=== PATIENT | male | born 1950 | race Hispanic/Latino ===

== ENCOUNTER → 2022-06-10 | Outpatient (CLI) | payer MEDICARE | END | disposition home or self-care (01) | LOC: SHCH 14:20 | PROVIDERS: ATTEND Internal Medicine Cardiovascular Disease | DX: I70.203 Unspecified atherosclerosis of native arteries of extremities, bilateral legs (principal) | CPT/HCPCS: 93925 ==

== ENCOUNTER → 2022-07-13 | Outpatient (CLI) | payer MEDICARE ==
[~2022-07-13] MED LIST: IOHEXOL 350 MG/ML 100ML INFUS..BTL IV ONE; IOHEXOL-350 50ML VIAL IV ONE
== END | disposition home or self-care (01) ==
LOC: RAH 08:36
PROVIDERS: ATTEND Internal Medicine Cardiovascular Disease
DX: I73.9 Peripheral vascular disease, unspecified (principal)
CPT/HCPCS: 75635; Q9967 ×2

== ENCOUNTER 2022-10-08 05:39 | Day surgery (SDC) | payer MEDICARE ==
[2022-10-06 11:12] LABS: BASOPHILS % (AUTO) 1.2 % (0.0-5.0); EOSINOPHILS % (AUTO) 1.4 % (0.0-8.0); HEMATOCRIT 39.8 % (42-54); LYMPHOCYTES % (AUTO) 23.9 % (21.0-51.0); MEAN CORPUSCULAR HEMOGLOBIN 27.9 pg (27.0-33.0); MEAN CORPUSCULAR HGB CONC 32.7 g/dL (32.0-36.0); MEAN CORPUSCULAR VOLUME 85.4 fL (79-99); MONOCYTES % (AUTO) 9.5 % (3.0-13.0); NEUTROPHILS % (AUTO) 63.7 % (40.0-77.0); PLATELET COUNT (AUTO) 234 K/uL (130-400); RED BLOOD CELL COUNT(AUTO) 4.66 MIL/uL (4.50-6.20); RED CELL DISTRIBUTION WIDTH 14.9 % (11.0-15.5); WHITE BLOOD COUNT (AUTO) 9.2 K/uL (4.8-10.8)
[2022-10-06 11:19] LABS: CREATININE 1.1 mg/dL (0.5-1.5); POTASSIUM 4.3 mmol/L (3.5-5.1)
[2022-10-06 11:23] LABS: INR 0.99 (0.85-1.15); PROTHROMBIN TIME 10.8 SEC (9.6-11.6)
[2022-10-06 11:24] LABS: PARTIAL THROMBOPLASTIN TIME 27.3 SEC (26.3-35.5)
[2022-10-06 11:26] VITALS: BP 149/79
[2022-10-06 11:31] LABS: B-TYPE NATRIURETIC PEPTIDE 38 pg/mL (0-100)
[~2022-10-08] VITALS: Ht 168.9 cm; Wt 79.4 kg
[2022-10-08] VITALS (9 sets, daily range): BP systolic 118–147; BP diastolic 68–88
[~2022-10-08 05:39] MED LIST changes: +ATOR40TA71 PO; +CARV12.511 PO; +CILOSTAZOL PO; +CLOP75TA32 PO; +DAPA10TA PO; -IOHEXOL 350 MG/ML 100ML INFUS..BTL IV ONE; -IOHEXOL-350 50ML VIAL IV ONE; +METF-444 PO
[2022-10-08] MEDS ORDERED: HEPARIN 10,000 UNIT/10ML (1,000 UNIT/ML) VIAL ONE (07:09)
[2022-10-08] MEDS ORDERED: MIDAZOLAM HCL 1 MG/ML 2ML VIAL ONE (07:09)
[2022-10-08] MEDS ORDERED: IODIXANOL 320 MG/ML 100 ML VIAL ONE (07:09)
[2022-10-08] MEDS ORDERED: LIDOCAINE HCL 400MG/20ML VIAL ONE (07:09)
[2022-10-08] MEDS ORDERED: NITROGLYCERIN 50MG VIAL ONE (07:09)
[2022-10-08] MEDS ORDERED: FENTANYL CITRATE PF 50 MCG/1 ML 2ML VIAL ONE (07:09)
[2022-10-08] MEDS ORDERED: 0.9%NACL 1000ML 1,000 ML IV ONE (07:11)
[2022-10-08] MEDS ORDERED: DEXTROSE 50%-WATER 50 ML DISP.SYRIN IV PRN (09:30)
[2022-10-08] MEDS ORDERED: GLUCAGON 1MG KIT 1 MG ML IM PRN (09:30)
[2022-10-08] MEDS ORDERED: 0.9%NACL 1000ML 1,000 ML IV SCH (09:30)
== END 2022-10-08 14:20 | disposition home or self-care (01) ==
LOC: DAH 05:39
PROVIDERS: ATTEND Internal Medicine Cardiovascular Disease
DX: I70.213 Atherosclerosis of native arteries of extremities with intermittent claudication, bilateral legs (principal); I70.92 Chronic total occlusion of artery of the extremities; E11.51 Type 2 diabetes mellitus with diabetic peripheral angiopathy without gangrene; I10 Essential (primary) hypertension; E78.5 Hyperlipidemia, unspecified; I25.10 Atherosclerotic heart disease of native coronary artery without angina pectoris; J44.9 Chronic obstructive pulmonary disease, unspecified; Z79.899 Other long term (current) drug therapy; Z79.84 Long term (current) use of oral hypoglycemic drugs; Z82.49 Family history of ischemic heart disease and other diseases of the circulatory system; Z80.51 Family history of malignant neoplasm of kidney; Z72.89 Other problems related to lifestyle; Z98.890 Other specified postprocedural states; Z87.891 Personal history of nicotine dependence; Z79.01 Long term (current) use of anticoagulants
CPT/HCPCS: 80048; 83880; 85025; 85610; 85730; 36415; 71045; 93005; 75716; 36245; 82948 ×2; C1894 ×2; C1887; C1769; J3010; J3490 ×2; J7030; J2250; J1644; Q9967; A4215; A4222; A4221; A4663; A4216; A4606; A4223 ×3; 36140; 99156; 99157

== ENCOUNTER → 2024-01-26 | Outpatient (CLI) | payer MEDICARE ==
[~2024-01-26] MED LIST changes: +IOHEXOL 350 MG/ML 100ML INFUS..BTL IV ONE; +METOPROLOL TARTRATE 1 MG/ML 5ML VIAL IV ONE
== END | disposition home or self-care (01) ==
LOC: RAH 10:01
PROVIDERS: ATTEND Student in an Organized Health Care Education/Training Program
DX: T73.3XXA Exhaustion due to excessive exertion, initial encounter (principal); Z95.1 Presence of aortocoronary bypass graft; X58.XXXA Exposure to other specified factors, initial encounter; Y93.89 Activity, other specified; Y92.89 Other specified places as the place of occurrence of the external cause; Y99.8 Other external cause status
CPT/HCPCS: 75574; J3490 ×2; Q9967